=== PATIENT | female | born 1945 | race Caucasian/White ===

== ENCOUNTER 2021-12-11 07:48 | Day surgery (SDC) | payer MEDICARE, OTHER ==
[~2021-12-11] VITALS: Ht 170 cm; Wt 77.0 kg
[~2021-12-11 07:48] MED LIST: BACLOFEN10 MG PO; CELECOXIB200 MG PO; DICLOFENAC SOD100 G1 TOP; LASIX20 MG PO; LISINOPRIL-HCT1 EAC1 PO; MECLIZINE HCL12.5 MG PO; NYSTOP60 GM TOP; OTEZLA30 MG PO; SIMVASTATIN20 MG PO
[2021-12-11] MEDS ORDERED: ONE DAILY FOR1 EAC2 PO (08:29)
[2021-12-12 07:09] LABS: BASOPHIL 0.1 % (0-2); EOSINOPHIL 0.2 % (0-7); HCT 32.5 % (37.0-47.0); HGB 10.7 g/dl (12.5-16.0); LYMPHOCYTE 14.5 % (15-48); MCH 31.9 pg (25.0-31.0); MCHC 32.9 g/dL (32.0-36.0); MONOCYTE 9.3 % (0-12); MPV 9.2 fL (6.0-9.5); NEUTROPHIL 75.7 % (41-80); NRBC 0; PLT 178 K/uL (150-400); RBC 3.35 M/uL (4.20-5.40); RDW 13.2 % (11.5-14.0); WBC 9.8 K/uL (4.0-10.5)
[2021-12-12 07:48] LABS: BUN/CREAT RATIO (CALC) 35.5 RATIO; CREATININE 0.62 mg/dL (0.51-0.95); POTASSIUM 4.5 mmol/L (3.5-5.1)
[2021-12-12] MEDS ORDERED: XARELTO10 MG PO (08:58)
[2021-12-12] MEDS ORDERED: FEOSOL325 MG PO (08:58)
[2021-12-12] MEDS ORDERED: OXYCODONE-ACET1 EAC1 PO (08:59)
== END 2021-12-12 13:35 | disposition home health service (06) ==
LOC: FAS 07:48 → FMS 12:31 → FAS 12-12 13:35
PROVIDERS: Legal Medicine
DX: M17.11 Unilateral primary osteoarthritis, right knee (principal); G89.18 Other acute postprocedural pain; I10 Essential (primary) hypertension; E78.5 Hyperlipidemia, unspecified; Z91.013 Allergy to seafood; Z79.899 Other long term (current) drug therapy
CPT/HCPCS: 36415; 73560; 80048; 85025; 86850; 86900; 86901; 94010; 97162; 97166; 97530-GP; 97535; C1713; C1776; J0171; J0697; J1885; J2250; J2270; J2370; J2405; J2704; J2795; J3010; J7120